=== PATIENT | male | born 2000 | race Caucasian/White ===

== ENCOUNTER 2025-09-13 09:43 | Emergency (ER) | payer OTHER, SELFPAY ==
[2025-09-13 10:06] VITALS: BP 119/73; PULSE 54; RESP 16; TEMP 36.8; O2SAT 97
--- NOTE | 2025-09-13 11:45 | ED_ITS ---
HPI - General Adult General Chief complaint: Upper Respiratory Infection Stated complaint: SORE THROAT/COUGH Time Seen by Provider: 09/13/25 09:58 Source: patient Mode of arrival: ambulatory Limitations: no limitations History of Present Illness HPI narrative: Presents for evaluation of a sore throat for last 3 weeks. He notes that his symptoms are worse at night and upon waking from sleep for the morning. He denies any fever, chills, shortness of breath, nausea,, diarrhea. His girlfriend is being evaluated for similar symptoms today. He does not smoke. He tried delsym and mucinex for his symptoms. Related Data Allergies Allergy/AdvReac Type Severity Reaction Status Date / Time alcohol Allergy Intermediate Unknown Verified 09/13/25 10:21 Review of Systems Review of Systems: CONSTITUTIONAL: Denies fever, chills, or sweats. EYES: Denies visual changes, redness, or discharge. ENT: Reports sore throat. Denies rhinorrhea, congestion, or otalgia. CARDIOVASCULAR: Denies chest pain, palpitations, or edema. RESPIRATORY: Reports cough. Denies dyspnea. GASTROINTESTINAL: Denies abdominal pain, nausea, vomiting, or diarrhea. GENITOURINARY: Denies dysuria or hematuria. SKIN: Denies rash or itching. MUSCULOSKELETAL: Denies back pain, joint pain, or myalgia. NEUROLOGIC: Denies headache, numbness, dizziness, or weakness. PSYCHIATRIC: Denies anxiety or depression. PMFSH Past Medical History Medical History No pertinent past medical history Surgical History Surgical History History of tonsillectomy Family History Family History Mother Family history non-contributory Social History Social History Gender identity (if verbalized by the patient): Male Sexual Orientation (if Verbalized by the Patient): Straight or Heterosexual Spiritual care concerns: No Exam Narrative: GENERAL: Well-appearing, well-nourished, and in no acute distress. HEAD: Normocephalic, atraumatic. EYES: PERRLA and EOMI. ENT: Nares clear, no rhinorrhea or epistaxis. Mucous membranes moist. Oropharynx without tonsillar hypertrophy exudate or other lesions however there is posterior pharyngeal erythema. Bilateral TMs pearly monge nonbulging NECK: Supple. No adenopathy or masses. No carotid bruits or JVD CHEST: Clear to auscultation. No respiratory distress. No wheezes rales or rhonchi HEART: Regular rate and rhythm. No murmur heard. Normal peripheral pulses. ABDOMEN: Soft, nontender, nondistended, normal active bowel sounds. EXTREMITIES: Normal range of motion. No edema. SKIN: Warm, dry, no rash. NEURO: No focal deficits. Alert and oriented x3. PSYCH: Normal mood and affect. Course Course Emergency Course: This is a 25-year-old male who presented for evaluation of sore throat. Rapid strep negative. Hooker negative. Will send throat culture. Increase hydration. Vsbu-air-kutfezx agents for symptom management. Through shared decision making opted to proceed with Augmentin. Will also discharge with pantoprazole as his symptoms are worse when lying down. Follow-up with primary provider. Go to the ER for worsening symptoms. Patient in agreement with plan of care. Level of Care: Express Care Visit Vital Signs Vital signs: Vital Signs Temperature 36.8 C 09/13/25 10:06 Pulse Rate 54 L 09/13/25 10:06 Respiratory Rate 16 09/13/25 10:06 Blood Pressure 119/73 09/13/25 10:06 Pulse Oximetry 97 09/13/25 10:06 Temperature 36.8 C 09/13/25 10:06 Pulse Rate 54 L 09/13/25 10:06 Respiratory Rate 16 09/13/25 10:06 Blood Pressure 119/73 09/13/25 10:06 Pulse Oximetry 97 09/13/25 10:06 Medical Decision Making Vital Signs Vital Signs: Vital Signs Temperature 36.8 C 09/13/25 10:06 Pulse Rate 54 L 09/13/25 10:06 Respiratory Rate 16 09/13/25 10:06 Blood Pressure 119/73 09/13/25 10:06 Pulse Oximetry 97 09/13/25 10:06 Temperature 36.8 C 09/13/25 10:06 Pulse Rate 54 L 09/13/25 10:06 Respiratory Rate 16 09/13/25 10:06 Blood Pressure 119/73 09/13/25 10:06 Pulse Oximetry 97 09/13/25 10:06 Discharge Plan Discharge Clinical Impression: Pharyngitis Patient Disposition: Home Condition: Stable Instructions: Antibiotic Form, Pharyngitis (ED) Patient Language: [place] Prescriptions: New amoxicillin-pot clavulanate 875-125 mg tablet 1 tablet PO Q12H Qty: 20 0RF pantoprazole [Protonix] 40 mg tablet,delayed release (DR/EC) 40 mg PO QAM Qty: 14 0RF Follow-up/Referrals: Inkom,Edison Collazo MD [Primary Care Provider] Time of Disposition: 11:44
[2025-09-13 11:50] LABS: EDMONONEGPOS Negative (Positive); EDSTREPNEGPOS1 Negative (Negative)
== END 2025-09-13 11:50 | disposition home or self-care (01) ==
PROVIDERS: Emergency Provider Nurse Practitioner; PCP Family Medicine
DX: J02.9 Acute pharyngitis, unspecified (principal)
CPT/HCPCS: 36416; 86308; 87081; 87880; 99203; G0463